=== PATIENT | female | born 1990 | race Caucasian/White ===

== ENCOUNTER 2018-10-30 05:24 | Emergency (ER) | payer SELFPAY ==
[~2018-10-30] VITALS: Ht 162.6 cm; Wt 60.0 kg
[2018-10-30 05:26] VITALS: Ht 162.6 cm; Wt 60.0 kg
[2018-10-30] MEDS ORDERED: morphine 4 MG/ML VIAL IV STA (05:30)
[2018-10-30] MEDS: ONDANSETRON 4 MG INJ IV STA ×2 (05:45→07:22)
--- NOTE | 2018-10-30 06:07 | EN ---
Date/Time of Note Date/Time of Note DATE: 10/30/18 TIME: 06:06 ER Progress Note Peripheral IV Insertion: Indication: Difficult IV access Location: right forearm Attempts: 1 Angiocath-type: 18 The patient was consented prior to procedure and states understanding of risks, benefits, alternatives. Verbal consent was provided Sterile procedure was used to insert a peripheral IV. Indication, location and Angiocath-type are noted above. Ultrasound guidance was used to assist in the insertion of the Angiocath. Return of dark nonpulsatile blood was obtained, normal saline flushed through the Angiocath which was then secured to the skin. The patient tolerated the procedure well without complications. Emergency Bedside Ultrasound: The patient was verbally consented prior to procedure and understands the risks, benefits, and alternatives. The patient is agreeable to procedure and has given verbal consent. Indication: Peripheral IV insertion Probe Type: Linear Findings: Dynamic ultrasound utilized with compression technique with both linear and horizontal views. The patient tolerated the procedure well and there were no complications. FADIA LYONS MD Oct 30, 2018 06:07
[2018-10-30] MEDS: SOD CHLORIDE 0.9% 1,000 ML IV STA ×2 (06:18→06:46)
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
[2018-10-30] MEDS ORDERED: FENTAnyl 50 MCG/ML VIAL IV ONE ×2 (07:30→10:30)
[2018-10-30] MEDS ORDERED: CEFTRIAXONE 1 GM/50 ML (PMX) 50 ML IVPB ONE (09:30)
[2018-10-30] MEDS ORDERED: SOD CHLORIDE 0.9% 1,000 ML IV ONE (09:30)
[2018-10-30 10:17] VITALS: BP 91/50; PULSE 65; RESP 18
[2018-10-30] MEDS ORDERED: POLY17PO6 PO (10:37)
[2018-10-30] MEDS ORDERED: CEPH-443 PO (10:37)
== END 2018-10-30 12:05 | disposition home or self-care (01) ==
LOC: E/R 05:24
DX: N30.00 Acute cystitis without hematuria (principal); K59.00 Constipation, unspecified; D47.3 Essential (hemorrhagic) thrombocythemia; D50.9 Iron deficiency anemia, unspecified
CPT/HCPCS: 36415; 36600; 74176; 80053; 81001; 81025; 82803; 83690; 85025; 96374; 96375; 96376; 99285; J0696; J2270; J2405; J3010; J7030